=== PATIENT | female | born 1960 | race Two or more races ===

== ENCOUNTER 2025-05-04 14:04 | Emergency (ER) | payer OTHER ==
[~2025-05-04] VITALS: Ht 162.6 cm; Wt 50.3 kg
[2025-05-04 16:26] LABS: PLATELET COUNT (AUTO) 275 K/uL (150-450); RED BLOOD CELL COUNT(AUTO) 4.53 MIL/uL (4.0-5.2); RED CELL DISTRIBUTION WIDTH 14.1 % (11.5-15.0); WHITE BLOOD COUNT (AUTO) 7.7 K/uL (4.3-11.0)
[2025-05-04] MEDS: IV NS 0.9% 1,000 ML BAG IV ONE (16:26)
[2025-05-04 16:36] LABS: INR 1.05 (0.91-1.10)
[2025-05-04 16:37] LABS: CALCIUM, SERUM 10.0 mg/dL (8.5-10.1); CREATININE 1.0 mg/dL (0.6-1.3); SODIUM SERUM 139.0 mmol/L (136-145); UREA NITROGEN, BLOOD 14.0 mg/dL (7-18)
[2025-05-04 16:42] LABS: ASPARTATE AMINOTRANSFERASE 20.0 U/L (15-37); TOTAL PROTEIN, SERUM 7.9 g/dL (6.4-8.2)
[2025-05-04 17:59] VITALS: BP 129/77; TEMP 97.7; O2SAT 99
== END 2025-05-04 17:59 | disposition home or self-care (01) ==
LOC: ER 14:04
DX: R55 Syncope and collapse (principal); R42 Dizziness and giddiness; R03.1 Nonspecific low blood-pressure reading; R07.9 Chest pain, unspecified
CPT/HCPCS: 99285; 96360; 70450; 71045; 93005; 85025; 80048; 80076; 36415; 85730; 82962; J7030; A4623; A7526